=== PATIENT | male | born 1950 | race Caucasian/White ===

== ENCOUNTER 2022-11-09 21:45 | Inpatient (IN) | payer OTHER ==
[~2022-11-09] VITALS: Ht 182.9 cm; Wt 113.0 kg
[2022-11-09 21:45] VITALS: BP 155/56
[2022-11-09 22:00] VITALS: BP 155/56
[2022-11-09] MEDS ORDERED: ACETAMINOPHEN 325 MG TAB PO PRN (22:45)
[2022-11-09] MEDS ORDERED: ONDANSETRON HCL 4 MG/2 ML VIAL IV PRN (22:45)
[2022-11-09] MEDS ORDERED: MORPHINE SULFATE INJ 2 MG/ml SYRG IV PRN (22:45)
[2022-11-09] MEDS ORDERED: ALBUTEROL SULF 2.5 MG/0.5ML(0.5%) NEB SOLN NEB PRN (22:45)
[2022-11-09] MEDS ORDERED: hydrALAZINE HCL 10 MG TAB PO PRN (22:45)
[2022-11-09 23:13] VITALS: BP 155/56
[2022-11-10] VITALS (7 sets, daily range): BP systolic 107–159; BP diastolic 55–88
[2022-11-10 00:10] LABS: INR 3.28 (0.9-1.15)
[2022-11-10] MEDS: ACETAMINOPHEN 650 MG RECT SUPP PR PRN ×2 (00:10→12:34)
[2022-11-10] MEDS ORDERED: WARF-66 PO (02:47)
[2022-11-10] MEDS ORDERED: ALEN70TA74 PO (02:47)
[2022-11-10] MEDS ORDERED: ANAS1TAB7 PO (02:47)
[2022-11-10] MEDS ORDERED: TAMS0.4C36 PO (02:47)
[2022-11-10 06:38] LABS: Anion Gap 3 (5-15); BUN/Creatinine Ratio 11.1 (10.0-20.0); Blood Urea Nitrogen 17 mg/dL (7-18); Calcium 8.4 mg/dL (8.5-10.1); Carbon Dioxide 28 mmol/L (21-32); Chloride 113 mmol/L (98-107); GFR African American 58 mL/min; GFR Non-African American 48 mL/min; Glucose 154 mg/dL (74-106); Potassium 4.1 mmol/L (3.5-5.1); Sodium 144 mmol/L (136-145)
[2022-11-10 07:34] LABS: Basophils # (auto) 0 10 ^3/uL (0-0.2); Basophils % (auto) 0.1 % (0.0-2.0); Eosinophils # (auto) 0 10 ^3/uL (0-0.8); Hematocrit 39.5 % (41.0-53.0); Hemoglobin 13.3 g/dL (13.5-17.5); Lymphocytes # (auto) 0.6 10 ^3/uL (0.4-5.4); Lymphocytes % (auto) 5.6 % (10.0-50.0); Mean Corpuscular Hemoglobin 32.8 pg (28.0-32.0); Mean Corpuscular Hgb Conc. 33.7 g/dL (32.0-36.0); Mean Corpuscular Volume 97.2 fL (80.0-100.0); Monocytes # (auto) 1.1 10 ^3/uL (0-1.3); Monocytes % (auto) 11.1 % (0.0-12.0); Neutrophils # (auto) 8.3 10 ^3/uL (1.6-8.6); Neutrophils % (auto) 83.2 % (37.0-80.0); Red Blood Cells 4.07 10^6/uL (4.5-5.90); Red Cell Distribution Width 13.6 % (11.8-14.3)
[2022-11-10] MEDS: cefTRIAXone 1GM/50ML D5W 50 ML IV SCH (08:35)
[2022-11-10 11:01] LABS: INR 2.96 (0.9-1.15); Partial Thromboplastin Time 42.4 sec (24.6-33.4)
[2022-11-10] MEDS: HYDROcodone-ACET 5/325MG TAB PO PRN (11:23)
[2022-11-10] MEDS ORDERED: SODIUM CHLORIDE 0.9% 1,000 ML IV ONE (17:15)
[2022-11-10] MEDS: PIPERACILLIN-TAZOB 3.375GM 100 ML IV SCH (18:27)
[2022-11-10] MEDS: SODIUM CHLORIDE 0.9% 1,000 ML IV SCH (18:32)
[2022-11-10] MEDS ORDERED: WARFARIN SODIUM 2.5 MG TAB PO ONE (19:00)
[2022-11-11] MEDS: PIPERACILLIN-TAZOB 3.375GM 100 ML IV SCH ×3 (02:29→17:33)
[2022-11-11] MEDS: SODIUM CHLORIDE 0.9% 1,000 ML IV SCH ×3 (03:15→23:11)
[2022-11-11 05:00] VITALS: BP 117/80
[2022-11-11 06:28] LABS: Basophils # (auto) 0 10 ^3/uL (0-0.2); Basophils % (auto) 0.1 % (0.0-2.0); Eosinophils # (auto) 0 10 ^3/uL (0-0.8); Eosinophils % (auto) 0.1 % (0.0-7.0); Hematocrit 35.5 % (41.0-53.0); Hemoglobin 11.9 g/dL (13.5-17.5); Lymphocytes # (auto) 0.7 10 ^3/uL (0.4-5.4); Lymphocytes % (auto) 9.9 % (10.0-50.0); Mean Corpuscular Hemoglobin 32.8 pg (28.0-32.0); Mean Corpuscular Hgb Conc. 33.6 g/dL (32.0-36.0); Mean Corpuscular Volume 97.7 fL (80.0-100.0); Monocytes # (auto) 0.6 10 ^3/uL (0-1.3); Monocytes % (auto) 9.1 % (0.0-12.0); Neutrophils # (auto) 5.5 10 ^3/uL (1.6-8.6); Neutrophils % (auto) 80.8 % (37.0-80.0); Nucleated Red Blood Cells % 0.1 %; Red Blood Cells 3.63 10^6/uL (4.5-5.90); Red Cell Distribution Width 13.6 % (11.8-14.3); White Blood Cell 6.8 10^3/uL (4.4-10.8)
[2022-11-11 06:35] LABS: INR 1.8 (0.9-1.15); Partial Thromboplastin Time 37.6 sec (24.6-33.4)
[2022-11-11 06:41] LABS: BUN/Creatinine Ratio 13.7 (10.0-20.0); Calcium 8.2 mg/dL (8.5-10.1); Potassium 3.9 mmol/L (3.5-5.1)
[2022-11-11] MEDS: cefTRIAXone 1GM/50ML D5W 50 ML IV SCH (08:46)
[2022-11-11 09:00] VITALS: BP 155/87
[2022-11-11 13:00] VITALS: BP 121/80
[2022-11-11] MEDS ORDERED: ARTIFICIAL TEARS 15ml EACHEYE PRN (16:15)
[2022-11-11 16:34] VITALS: BP 155/84
[2022-11-11] MEDS ORDERED: WARFARIN SODIUM 2.5 MG TAB PO ONE (17:00)
[2022-11-11 22:00] VITALS: BP 147/78
[2022-11-12] MEDS: PIPERACILLIN-TAZOB 3.375GM 100 ML IV SCH ×3 (02:35→18:30)
[2022-11-12 04:58] LABS: Basophils # (auto) 0 10 ^3/uL (0-0.2); Basophils % (auto) 0.5 % (0.0-2.0); Eosinophils # (auto) 0.1 10 ^3/uL (0-0.8); Eosinophils % (auto) 1.3 % (0.0-7.0); Hematocrit 32.9 % (41.0-53.0); Hemoglobin 11.2 g/dL (13.5-17.5); Lymphocytes # (auto) 1.3 10 ^3/uL (0.4-5.4); Lymphocytes % (auto) 19.9 % (10.0-50.0); Mean Corpuscular Hemoglobin 32.7 pg (28.0-32.0); Mean Corpuscular Hgb Conc. 33.9 g/dL (32.0-36.0); Mean Corpuscular Volume 96.5 fL (80.0-100.0); Monocytes # (auto) 0.8 10 ^3/uL (0-1.3); Neutrophils # (auto) 4.2 10 ^3/uL (1.6-8.6); Neutrophils % (auto) 66.3 % (37.0-80.0); Nucleated Red Blood Cells % 0.1 %; Red Blood Cells 3.41 10^6/uL (4.5-5.90); Red Cell Distribution Width 13.2 % (11.8-14.3); White Blood Cell 6.4 10^3/uL (4.4-10.8)
[2022-11-12 05:00] VITALS: BP 155/83
[2022-11-12 05:05] LABS: Calcium 7.5 mg/dL (8.5-10.1)
[2022-11-12 05:08] LABS: BUN/Creatinine Ratio 13.5 (10.0-20.0)
[2022-11-12 05:10] LABS: INR 1.36 (0.9-1.15)
[2022-11-12 05:55] VITALS: BP 132/72
[2022-11-12 09:00] VITALS: BP 141/82
[2022-11-12] MEDS: SODIUM CHLORIDE 0.9% 1,000 ML IV SCH (09:15)
[2022-11-12] MEDS: cefTRIAXone 1GM/50ML D5W 50 ML IV SCH (09:48)
[2022-11-12 13:00] VITALS: BP_SYST 167; BP_SYST 170; BP_DIAS 96
[2022-11-12 17:14] VITALS: BP 152/87
[2022-11-12] MEDS: HYDROcodone-ACET 5/325MG TAB PO PRN (18:33)
[2022-11-12 22:00] VITALS: BP 132/79
[2022-11-13 05:00] VITALS: BP 134/82
[2022-11-13] MEDS ORDERED: LEVO500T91 PO (05:51)
[2022-11-13] MEDS ORDERED: WARF-66 PO (05:51)
[2022-11-13 09:00] VITALS: BP 142/83
[2022-11-13 09:34] LABS: Basophils # (auto) 0 10 ^3/uL (0-0.2); Basophils % (auto) 0.3 % (0.0-2.0); Eosinophils # (auto) 0.1 10 ^3/uL (0-0.8); Eosinophils % (auto) 1.8 % (0.0-7.0); Hematocrit 31.6 % (41.0-53.0); Hemoglobin 10.6 g/dL (13.5-17.5); Lymphocytes % (auto) 19.9 % (10.0-50.0); Mean Corpuscular Hemoglobin 32.3 pg (28.0-32.0); Mean Corpuscular Hgb Conc. 33.5 g/dL (32.0-36.0); Mean Corpuscular Volume 96.5 fL (80.0-100.0); Monocytes # (auto) 0.4 10 ^3/uL (0-1.3); Monocytes % (auto) 7.6 % (0.0-12.0); Neutrophils # (auto) 3.7 10 ^3/uL (1.6-8.6); Neutrophils % (auto) 70.4 % (37.0-80.0); Nucleated Red Blood Cells % 0.1 %; Red Blood Cells 3.28 10^6/uL (4.5-5.90); Red Cell Distribution Width 13.2 % (11.8-14.3); White Blood Cell 5.2 10^3/uL (4.4-10.8)
[2022-11-13 09:48] LABS: INR 1.26 (0.9-1.15); Partial Thromboplastin Time 31.1 sec (24.6-33.4)
[2022-11-13] MEDS ORDERED: levoFLOXacin 500 MG TAB PO SCH (10:00)
[2022-11-13 13:00] VITALS: BP 150/66
[2022-11-13] MEDS: HYDROcodone-ACET 5/325MG TAB PO PRN (14:00)
[2022-11-13 16:58] VITALS: BP 150/66
[2022-11-13 16:59] VITALS: BP 148/78
[2022-11-13] MEDS ORDERED: WARFARIN SODIUM 5 MG TAB PO SCH (17:00)
[2022-11-13] MEDS ORDERED: WARFARIN SODIUM 2.5 MG TAB PO ONE (17:00)
== END 2022-11-13 18:25 | disposition home health service (06) | DRG 871 ==
LOC: TELE-WESTW 21:45
PROVIDERS: ADMIT Internal Medicine; ATTEND Internal Medicine
DX: A41.89 Other specified sepsis (principal); G93.41 Metabolic encephalopathy; N13.6 Pyonephrosis; I13.0 Hypertensive heart and chronic kidney disease with heart failure and stage 1 through stage 4 chronic kidney disease, or unspecified chronic kidney disease; B96.89 Other specified bacterial agents as the cause of diseases classified elsewhere; R31.9 Hematuria, unspecified; R09.02 Hypoxemia; F03.90 Unspecified dementia, unspecified severity, without behavioral disturbance, psychotic disturbance, mood disturbance, and anxiety; N40.0 Benign prostatic hyperplasia without lower urinary tract symptoms; R41.0 Disorientation, unspecified; M81.0 Age-related osteoporosis without current pathological fracture; R29.6 Repeated falls; N32.0 Bladder-neck obstruction; N18.30 Chronic kidney disease, stage 3 unspecified; I50.9 Heart failure, unspecified; Z86.711 Personal history of pulmonary embolism; Z86.718 Personal history of other venous thrombosis and embolism; Z79.01 Long term (current) use of anticoagulants; Z79.810 Long term (current) use of selective estrogen receptor modulators (SERMs); Z79.899 Other long term (current) drug therapy; Z85.3 Personal history of malignant neoplasm of breast; Z80.0 Family history of malignant neoplasm of digestive organs; Z90.12 Acquired absence of left breast and nipple; Z87.891 Personal history of nicotine dependence; Z92.21 Personal history of antineoplastic chemotherapy
CPT/HCPCS: 36415; 70450; 76775; 80048; 83605; 85025; 85610; 85730; 87040; 97116; 97163; 97530; G0378; J0696; J2543

== ENCOUNTER 2023-01-30 07:27 | Day surgery (SDC) | payer BC, OTHER ==
[~2023-01-30] VITALS: Ht 185.4 cm; Wt 108.4 kg
[2023-01-30] VITALS (8 sets, daily range): BP systolic 87–142; BP diastolic 52–90; PULSE 68–82; RESP 12–16; O2SAT 94–100
[~2023-01-30 07:27] MED LIST: ALEN70TA74 PO; AML5T PO; TAMS0.4C36 PO; WARF-66 PO
[2023-01-30] MEDS ORDERED: HEPARIN SODIUM (PORCINE) 5000 UNITS/ML 1ML VIAL ONE (09:08)
[2023-01-30] MEDS ORDERED: fentaNYL CITRATE 100 MCG/2 ML VL ONE (09:08)
[2023-01-30] MEDS ORDERED: ANGIOMAX 250 MG VIAL IV ONE (09:08)
[2023-01-30] MEDS ORDERED: VERAPAMIL 2.5MG/ML INJ 2ML VIAL IV ONE (09:08)
[2023-01-30] MEDS ORDERED: SODIUM CHL 0.9% 0 ML ONE (09:09)
[2023-01-30] MEDS ORDERED: LIDOCAINE 2%HCL (LOCAL ANESTH.) INJ 20ML MDV ONE (09:09)
[2023-01-30] MEDS ORDERED: MIDAZOLAM HCL 2MG/2ML 2ml VIAL (1mg/ml) ONE (09:09)
[2023-01-30] MEDS ORDERED: IODIXANOL 320MG/ML 100ML BTL IV ONE (09:09)
== END 2023-01-30 12:12 | disposition home or self-care (01) ==
LOC: CATH 07:27
PROVIDERS: ATTEND Internal Medicine
DX: R94.39 Abnormal result of other cardiovascular function study (principal); I25.118 Atherosclerotic heart disease of native coronary artery with other forms of angina pectoris; I77.1 Stricture of artery
CPT/HCPCS: 76937; 93458; C1725; C1769; C1894; J1644; J2250; J3010; Q9967; 99152

== ENCOUNTER → 2023-04-27 | Day surgery (SDC) | payer BC, OTHER ==
[~2023-04-27] VITALS: Ht 185.4 cm; Wt 108.4 kg
[~2023-04-27] MED LIST changes: +CIPROFLOXACIN 400MG/200ML 200 ML IV ONE; +HYDROmorphone HCL 2 MG/ML VL/or syr IV PRN; +MEPERIDINE HCL (25 MG/ML) 1ML VIAL IV PRN; +ONDANSETRON HCL 4 MG/2 ML VIAL IV PRN; +ONDANSETRON HCL 4 MG/2 ML VIAL ONE; +PROPOFOL 10 MG/ML 20 ML IV ONE; +ePHEDrine SULFATE 50 MG/ML AMP ONE; +fentaNYL CITRATE 100 MCG/2 ML VL ONE
[2023-04-27 08:51] LABS: INR 1.25 (0.9-1.15); Partial Thromboplastin Time 29.1 SEC (24.5-34.5); Prothrombin Time 12.9 sec (9.3-11.8)
[2023-04-27 11:36] VITALS: PULSE 71; RESP 12; TEMP 97.1; O2SAT 92
[2023-04-27 12:45] VITALS: BP 147/85; PULSE 74; RESP 16; O2SAT 96
== END | disposition home or self-care (01) ==
LOC: SUR 07:46
PROVIDERS: ATTEND Urology
DX: N40.1 Benign prostatic hyperplasia with lower urinary tract symptoms (principal); I11.0 Hypertensive heart disease with heart failure; I50.9 Heart failure, unspecified; G47.30 Sleep apnea, unspecified; Z79.899 Other long term (current) drug therapy; Z98.890 Other specified postprocedural states
CPT/HCPCS: 36415; 52601; 85610; 85730; J0744; J2405; J2704; J3010

== ENCOUNTER 2023-05-26 14:36 | Inpatient (IN) | payer BC, OTHER ==
[~2023-05-26] VITALS: Ht 188 cm; Wt 110.9 kg
[~2023-05-26 14:36] MED LIST changes: -CIPROFLOXACIN 400MG/200ML 200 ML IV ONE; -HYDROmorphone HCL 2 MG/ML VL/or syr IV PRN; -MEPERIDINE HCL (25 MG/ML) 1ML VIAL IV PRN; -ONDANSETRON HCL 4 MG/2 ML VIAL IV PRN; -ONDANSETRON HCL 4 MG/2 ML VIAL ONE; -PROPOFOL 10 MG/ML 20 ML IV ONE; -ePHEDrine SULFATE 50 MG/ML AMP ONE; -fentaNYL CITRATE 100 MCG/2 ML VL ONE
[2023-05-26] MEDS ORDERED: ACET-6 PO (16:11)
[2023-05-26] MEDS ORDERED: ANAS1TAB7 PO (16:11)
[2023-05-26] MEDS ORDERED: DOCUSATE SOD 100 MG CAP PO PRN (16:45)
[2023-05-26] MEDS ORDERED: ONDANSETRON HCL 4 MG/2 ML VIAL IV PRN (16:45)
[2023-05-26 17:00] VITALS: PULSE 118; RESP 18; O2SAT 95
[2023-05-26] MEDS ORDERED: MORPHINE SULFATE INJ 2 MG/ml SYRG IV PRN (17:00)
[2023-05-26] MEDS ORDERED: NITROGLYCERIN 0.4 MG SL TAB SL PRN (17:00)
[2023-05-26 17:03] VITALS: BP 164/76; PULSE 125; RESP 16; TEMP 98.3; O2SAT 95
[2023-05-26] MEDS ORDERED: LIDOCAINE 2% JELLY 11ml (GLYDO) UR ONE (17:15)
[2023-05-26] MEDS ORDERED: hydrALAZINE HCL 20 MG/ML VL ONE (17:23)
[2023-05-26] MEDS ORDERED: MORPHINE SULFATE INJ 2 MG/ml SYRG ONE (17:23)
[2023-05-26] MEDS ORDERED: LIDOCAINE 2% JELLY 11ml (GLYDO) ONE (17:33)
[2023-05-26] MEDS: MORPHINE SULFATE INJ 2 MG/ml SYRG IV PRN (17:56)
[2023-05-26] MEDS: hydrALAZINE HCL 20 MG/ML VL IV PRN (17:57)
[2023-05-26] MEDS ORDERED: hydrALAZINE HCL 20 MG/ML VL IV SCH (18:00)
[2023-05-26] MEDS ORDERED: HYDROcodone-ACET 5/325MG TAB ONE (18:46)
[2023-05-26] MEDS: HYDROcodone-ACET 5/325MG TAB PO PRN (18:48)
[2023-05-26] MEDS ORDERED: amLODIPine BESYLATE 5 MG TAB PO ONE (19:15)
[2023-05-26] MEDS ORDERED: amLODIPine BESYLATE 5 MG TAB ONE (19:41)
[2023-05-26 20:00] VITALS: BP 122/78; PULSE 141; RESP 17; TEMP 98.5; O2SAT 94
[2023-05-26 20:21] LABS: Urine Bacteria NONE SEEN /hpf (None Seen); Urine Blood 1+ /uL (Negative); Urine Clarity Clear (Clear); Urine Color Colorless (Yellow); Urine Protein, UAD Negative (Negative); Urine Specific Gravity 1.013 (1.001-1.035); Urine Urobilinogen Normal (Negative); Urine WBC 4 /hpf (0 - 3); Urine pH 5.5 (5.0-8.0)
[2023-05-26] MEDS: SODIUM CHLORIDE 0.9% 1,000 ML IV SCH (21:00)
[2023-05-26] MEDS ORDERED: TAMSULOSIN HYDROCHLORIDE 0.4 MG CAP PO ONE (21:23)
[2023-05-26] MEDS ORDERED: ENOXAPARIN SOD 120 MG/0.8 ML SYRINGE SC ONE (21:24)
[2023-05-26] MEDS: ENOXAPARIN SOD 120 MG/0.8 ML SYRINGE SC SCH (21:39)
[2023-05-26] MEDS: TAMSULOSIN HYDROCHLORIDE 0.4 MG CAP PO SCH (21:39)
[2023-05-26 22:00] VITALS: BP 122/78; PULSE 140; RESP 17; TEMP 98.3; O2SAT 99
[2023-05-27] VITALS (7 sets, daily range): BP systolic 113–161; BP diastolic 65–84; PULSE 97–121; RESP 16–20; TEMP 97.7–98.7; O2SAT 92–100
[2023-05-27 05:57] LABS: Basophils # (auto) 0 10 ^3/uL (0-0.2); Basophils % (auto) 0.3 % (0.0-2.0); Eosinophils # (auto) 0.2 10 ^3/uL (0-0.8); Eosinophils % (auto) 2.1 % (0.0-7.0); Hematocrit 37.4 % (41.0-53.0); Hemoglobin 12.6 g/dL (13.5-17.5); Lymphocytes # (auto) 1.2 10 ^3/uL (0.4-5.4); Lymphocytes % (auto) 15.9 % (10.0-50.0); Mean Corpuscular Hemoglobin 31.8 pg (28.0-32.0); Mean Corpuscular Hgb Conc. 33.6 g/dL (32.0-36.0); Mean Corpuscular Volume 94.8 fL (80.0-100.0); Monocytes # (auto) 0.6 10 ^3/uL (0-1.3); Monocytes % (auto) 8.8 % (0.0-12.0); Neutrophils # (auto) 5.3 10 ^3/uL (1.6-8.6); Neutrophils % (auto) 72.9 % (37.0-80.0); Nucleated Red Blood Cells % 0.1 %; Red Blood Cells 3.94 10^6/uL (4.5-5.90); Red Cell Distribution Width 13.3 % (11.8-14.3); White Blood Cell 7.3 10^3/uL (4.4-10.8)
[2023-05-27 06:13] LABS: Alanine Aminotransferase 17 U/L (7-40); Albumin 3.6 g/dL (3.2-4.8); Alkaline Phosphatase 59 U/L (46-116); Anion Gap 7 (5-15); Aspartate Aminotransferase 25 U/L (13-40); BUN/Creatinine Ratio 12.7 (10.0-20.0); Bilirubin, Total 1.1 mg/dL (0.2-1.0); Blood Urea Nitrogen 17 mg/dL (9-23); Calcium 8.5 mg/dL (8.7-10.4); Carbon Dioxide 26 mmol/L (20-30); Chloride 111 mmol/L (98-107); Glucose 139 mg/dL (74-106); Potassium 3.8 mmol/L (3.5-5.1); Sodium 144 mmol/L (136-145); Total Protein 6.3 g/dL (5.7-8.2)
[2023-05-27] MEDS: SODIUM CHLORIDE 0.9% 1,000 ML IV SCH ×3 (06:19→18:01)
[2023-05-27 06:26] LABS: INR 1.94 (0.9-1.15); Partial Thromboplastin Time 40.7 SEC (24.5-34.5); Prothrombin Time 19.5 sec (9.3-11.8)
[2023-05-27] MEDS: ENOXAPARIN SOD 120 MG/0.8 ML SYRINGE SC SCH ×3 (08:10→21:13)
[2023-05-27] MEDS ORDERED: amLODIPine BESYLATE 5 MG TAB ONE (09:51)
[2023-05-27] MEDS ORDERED: TAMSULOSIN HYDROCHLORIDE 0.4 MG CAP PO ONE ×2 (09:51→21:10)
[2023-05-27] MEDS: TAMSULOSIN HYDROCHLORIDE 0.4 MG CAP PO SCH ×2 (09:58→21:13)
[2023-05-27] MEDS: amLODIPine BESYLATE 5 MG TAB PO SCH (10:00)
[2023-05-27] MEDS ORDERED: ENOXAPARIN SOD 120 MG/0.8 ML SYRINGE SC ONE ×2 (12:28→21:10)
[2023-05-27] MEDS ORDERED: ACETAMINOPHEN 325 MG TAB PO PRN (15:15)
[2023-05-27] MEDS ORDERED: ACETAMINOPHEN 325 MG TAB PO ONE (15:48)
[2023-05-27] MEDS ORDERED: LACTULOSE 20Gm/30ML SOLN ONE (15:48)
[2023-05-27] MEDS: LACTULOSE 20Gm/30ML SOLN PO PRN (15:52)
[2023-05-27] MEDS ORDERED: hydrALAZINE HCL 20 MG/ML VL ONE (21:28)
[2023-05-27] MEDS: hydrALAZINE HCL 20 MG/ML VL IV PRN (21:30)
[2023-05-28 05:00] VITALS: BP 152/75; PULSE 102; RESP 20; TEMP 97.9; O2SAT 93
[2023-05-28] MEDS: MORPHINE SULFATE INJ 2 MG/ml SYRG IV PRN (05:12)
[2023-05-28] MEDS: SODIUM CHLORIDE 0.9% 1,000 ML IV SCH ×3 (05:13→18:45)
[2023-05-28] MEDS ORDERED: BUPIVACAINE HCL 50 ML ONE (06:36)
[2023-05-28] MEDS ORDERED: MORPHINE SULF PF 5 MG/10 ML VIAL ONE (06:38)
[2023-05-28] MEDS ORDERED: TRANEXAMIC ACID 20 ML ONE (06:40)
[2023-05-28] MEDS ORDERED: VANCOMYCIN HCL 1000 MG VL ONE (06:41)
[2023-05-28] MEDS ORDERED: KETOROLAC TROMETH 30 MG/ML 1ML VIAL ONE (06:43)
[2023-05-28] MEDS ORDERED: ceFAZolin 1GM/50ML 100 ML IV ONE (06:49)
[2023-05-28] MEDS ORDERED: fentaNYL CITRATE 100 MCG/2 ML VL ONE (06:58)
[2023-05-28] MEDS ORDERED: PROPOFOL 10 MG/ML 20 ML IV ONE (06:58)
[2023-05-28] MEDS ORDERED: ePHEDrine SULFATE 50 MG/ML AMP ONE (07:29)
[2023-05-28] MEDS ORDERED: DexAMETHasone SOD PHOS 10MG/1ML VIAL INJ ONE (07:37)
[2023-05-28] MEDS ORDERED: ONDANSETRON HCL 4 MG/2 ML VIAL ONE (07:37)
[2023-05-28] MEDS ORDERED: MEPERIDINE HCL (25 MG/ML) 1ML VIAL ONE (07:44)
[2023-05-28] MEDS ORDERED: PHENYLEPHRINE HCL 10 MG/ML VL ONE (07:48)
[2023-05-28 08:37] VITALS: RESP 19; O2SAT 93
[2023-05-28 10:00] VITALS: PULSE 118
[2023-05-28] MEDS: ENOXAPARIN SOD 120 MG/0.8 ML SYRINGE SC SCH (10:00)
[2023-05-28] MEDS: TAMSULOSIN HYDROCHLORIDE 0.4 MG CAP PO SCH ×2 (10:37→21:15)
[2023-05-28] MEDS: amLODIPine BESYLATE 5 MG TAB PO SCH (10:37)
[2023-05-28 10:53] LABS: INR 1.42 (0.9-1.15); Prothrombin Time 14.6 sec (9.3-11.8)
[2023-05-28 13:00] VITALS: BP 92/59; PULSE 112; RESP 18; TEMP 97.1; O2SAT 93
[2023-05-28] MEDS: ceFAZolin 2 GM/D5W100ml 100 ML IV SCH ×2 (14:46→21:15)
[2023-05-28] MEDS ORDERED: WARFARIN SODIUM 5 MG TAB PO ONE (17:00)
[2023-05-28 20:00] VITALS: PULSE 90; PULSE 96; RESP 20
[2023-05-28 22:00] VITALS: BP 105/61; PULSE 98; RESP 20; TEMP 97.8; O2SAT 92
[2023-05-29] VITALS (7 sets, daily range): BP systolic 102–136; BP diastolic 56–72; PULSE 78–91; RESP 18–20; TEMP 97.1–98.7; O2SAT 94–98
[2023-05-29] MEDS: HYDROcodone-ACET 5/325MG TAB PO PRN ×2 (02:18→15:22)
[2023-05-29] MEDS: SODIUM CHLORIDE 0.9% 1,000 ML IV SCH ×4 (04:54→20:40)
[2023-05-29] MEDS: ceFAZolin 2 GM/D5W100ml 100 ML IV SCH ×3 (06:05→23:31)
[2023-05-29 06:53] LABS: INR 1.42 (0.9-1.15); Prothrombin Time 14.6 sec (9.3-11.8)
[2023-05-29] MEDS: TAMSULOSIN HYDROCHLORIDE 0.4 MG CAP PO SCH ×2 (09:44→23:29)
[2023-05-29] MEDS: amLODIPine BESYLATE 5 MG TAB PO SCH (10:00)
[2023-05-29] MEDS ORDERED: WARFARIN SODIUM 5 MG TAB PO ONE (17:00)
[2023-05-30 05:00] VITALS: BP 137/67; PULSE 75; RESP 20; TEMP 97.2; O2SAT 97
[2023-05-30] MEDS: LACTULOSE 20Gm/30ML SOLN PO PRN (05:35)
[2023-05-30] MEDS: SODIUM CHLORIDE 0.9% 1,000 ML IV SCH ×2 (05:36→18:44)
[2023-05-30] MEDS: ceFAZolin 2 GM/D5W100ml 100 ML IV SCH ×3 (05:37→22:41)
[2023-05-30 06:33] LABS: INR 1.49 (0.9-1.15); Prothrombin Time 15.2 sec (9.3-11.8)
[2023-05-30] MEDS: TAMSULOSIN HYDROCHLORIDE 0.4 MG CAP PO SCH ×2 (08:47→22:41)
[2023-05-30] MEDS: amLODIPine BESYLATE 5 MG TAB PO SCH (08:47)
[2023-05-30 09:00] VITALS: BP 135/81; PULSE 81; RESP 18; TEMP 97.9; O2SAT 96
[2023-05-30 13:00] VITALS: BP 143/71; PULSE 80; RESP 18; TEMP 98.8; O2SAT 95
[2023-05-30 17:00] VITALS: BP 134/62; PULSE 93; RESP 19; TEMP 98.8; O2SAT 93
[2023-05-30] MEDS ORDERED: WARFARIN SODIUM 5 MG TAB PO ONE (17:00)
[2023-05-30 20:00] VITALS: PULSE 103; PULSE 93; PULSE 98; RESP 18; O2SAT 92
[2023-05-30 22:00] VITALS: BP 160/59; PULSE 98; RESP 18; TEMP 97.5; O2SAT 95
[2023-05-31] VITALS (10 sets, daily range): BP systolic 115–175; BP diastolic 59–83; PULSE 78–111; RESP 16–18; TEMP 97.5–98.7; O2SAT 92–100
[2023-05-31] MEDS: hydrALAZINE HCL 20 MG/ML VL IV PRN (01:26)
[2023-05-31] MEDS: SODIUM CHLORIDE 0.9% 1,000 ML IV SCH ×3 (05:26→11:49)
[2023-05-31] MEDS: ceFAZolin 2 GM/D5W100ml 100 ML IV SCH ×3 (05:49→21:18)
[2023-05-31 06:47] LABS: Anion Gap 7 (5-15); Carbon Dioxide 28 mmol/L (20-30); Chloride 108 mmol/L (98-107); Potassium 4.1 mmol/L (3.5-5.1); Sodium 143 mmol/L (136-145)
[2023-05-31 06:48] LABS: Calcium 8.6 mg/dL (8.5-10.1)
[2023-05-31 06:53] LABS: BUN/Creatinine Ratio 14.5 (10.0-20.0); Basophils # (auto) 0 10 ^3/uL (0-0.2); Basophils % (auto) 0.3 % (0.0-2.0); Blood Urea Nitrogen 17 mg/dL (9-23); Eosinophils # (auto) 0.2 10 ^3/uL (0-0.8); Eosinophils % (auto) 2.8 % (0.0-7.0); Glucose 142 mg/dL (74-106); Hematocrit 26.2 % (41.0-53.0); Hemoglobin 9.1 g/dL (13.5-17.5); Lymphocytes # (auto) 1.4 10 ^3/uL (0.4-5.4); Lymphocytes % (auto) 19.9 % (10.0-50.0); Mean Corpuscular Hemoglobin 32.6 pg (28.0-32.0); Mean Corpuscular Hgb Conc. 34.6 g/dL (32.0-36.0); Mean Corpuscular Volume 94.3 fL (80.0-100.0); Monocytes # (auto) 0.7 10 ^3/uL (0-1.3); Neutrophils # (auto) 4.8 10 ^3/uL (1.6-8.6); Nucleated Red Blood Cells % 0.2 %; Red Blood Cells 2.78 10^6/uL (4.5-5.90); Red Cell Distribution Width 12.9 % (11.8-14.3); White Blood Cell 7.2 10^3/uL (4.4-10.8)
[2023-05-31 06:59] LABS: INR 1.26 (0.9-1.15); Partial Thromboplastin Time 28.5 SEC (24.5-34.5)
[2023-05-31] MEDS: amLODIPine BESYLATE 5 MG TAB PO SCH (09:52)
[2023-05-31] MEDS: TAMSULOSIN HYDROCHLORIDE 0.4 MG CAP PO SCH ×2 (09:52→21:18)
[2023-05-31] MEDS: HYDROcodone-ACET 5/325MG TAB PO PRN (13:52)
[2023-05-31] MEDS ORDERED: WARFARIN SODIUM 2 MG TAB PO ONE (17:00)
[2023-06-01] VITALS (7 sets, daily range): BP systolic 128–146; BP diastolic 69–75; PULSE 85–96; RESP 18–19; TEMP 98–99.3; O2SAT 91–97
[2023-06-01] MEDS: SODIUM CHLORIDE 0.9% 1,000 ML IV SCH ×2 (02:56→12:51)
[2023-06-01] MEDS: ceFAZolin 2 GM/D5W100ml 100 ML IV SCH ×3 (06:15→21:45)
[2023-06-01 07:48] LABS: INR 1.19 (0.9-1.15); Partial Thromboplastin Time 26.4 SEC (24.5-34.5); Prothrombin Time 12.4 sec (9.3-11.8)
[2023-06-01] MEDS: amLODIPine BESYLATE 5 MG TAB PO SCH (10:00)
[2023-06-01] MEDS: TAMSULOSIN HYDROCHLORIDE 0.4 MG CAP PO SCH (12:22)
[2023-06-01] MEDS: HYDROcodone-ACET 5/325MG TAB PO PRN (12:22)
[2023-06-01] MEDS ORDERED: WARFARIN SODIUM 10 MG TAB PO ONE (17:00)
[2023-06-02] VITALS (7 sets, daily range): BP systolic 135–150; BP diastolic 69–96; PULSE 77–93; RESP 18–20; TEMP 97.5–98.4; O2SAT 92–100
[2023-06-02] MEDS: ceFAZolin 2 GM/D5W100ml 100 ML IV SCH ×2 (06:00→14:30)
[2023-06-02 07:52] LABS: INR 1.19 (0.9-1.15); Prothrombin Time 12.4 sec (9.3-11.8)
[2023-06-02] MEDS: amLODIPine BESYLATE 5 MG TAB PO SCH (10:00)
[2023-06-02] MEDS: HYDROcodone-ACET 5/325MG TAB PO PRN (10:29)
[2023-06-02] MEDS: LACTULOSE 20Gm/30ML SOLN PO PRN (10:29)
[2023-06-02] MEDS ORDERED: WARFARIN SODIUM 2.5 MG TAB PO ONE (17:00)
[2023-06-02] MEDS ORDERED: TAMSULOSIN HYDROCHLORIDE 0.4 MG CAP PO SCH (18:00)
== END 2023-06-02 18:11 | DRG 522 ==
LOC: TELE-WESTW 16:50 → UNDOADMIN 16:53 → UNDODISIN 06-02 17:43
PROVIDERS: ADMIT Internal Medicine; ATTEND Internal Medicine
PROC: 0SRR0JZ Replacement of Right Hip Joint, Femoral Surface with Synthetic Substitute, Open Approach (ICD-10-PCS; principal; 2023-05-28 07:15)
DX: S72.001A Fracture of unspecified part of neck of right femur, initial encounter for closed fracture (principal); I50.9 Heart failure, unspecified; I11.0 Hypertensive heart disease with heart failure; N40.0 Benign prostatic hyperplasia without lower urinary tract symptoms; F03.90 Unspecified dementia, unspecified severity, without behavioral disturbance, psychotic disturbance, mood disturbance, and anxiety; W18.39XA Other fall on same level, initial encounter; H91.90 Unspecified hearing loss, unspecified ear; Z79.01 Long term (current) use of anticoagulants; Z86.711 Personal history of pulmonary embolism; Z82.49 Family history of ischemic heart disease and other diseases of the circulatory system; Z83.3 Family history of diabetes mellitus; Z85.3 Personal history of malignant neoplasm of breast; Z85.89 Personal history of malignant neoplasm of other organs and systems; Z86.718 Personal history of other venous thrombosis and embolism; Y93.89 Activity, other specified; Y92.89 Other specified places as the place of occurrence of the external cause; Y99.8 Other external cause status
CPT/HCPCS: 36415; 70450; 71045; 72170; 80048; 80053; 81001; 85025; 85610; 85730; 86850; 86900; 86901; 87081; 87086; 93005; 93306; 97110; 97116; 97163; A4565; G0378; J1100; J1885; J2405; J2704; J3490

== ENCOUNTER 2023-10-11 17:58 | Inpatient (IN) | payer BC, OTHER ==
[~2023-10-11] VITALS: Ht 182.9 cm; Wt 94.9 kg
[~2023-10-11 17:58] MED LIST changes: +ACET-6 PO; +ANAS1TAB7 PO
[2023-10-11] MEDS ORDERED: VANCOMYCIN PER PHARMACY 0 MG IV SCH (20:45)
[2023-10-11] MEDS ORDERED: ONDANSETRON HCL 4 MG/2 ML VIAL IV PRN (20:45)
[2023-10-11] MEDS ORDERED: MORPHINE SULFATE INJ 2 MG/ml SYRG IV PRN (20:45)
[2023-10-11] MEDS ORDERED: ACETAMINOPHEN 325 MG TAB PO PRN (20:45)
[2023-10-11 21:00] VITALS: BP 136/66; PULSE 115; RESP 20; TEMP 98.8; O2SAT 96
[2023-10-11] MEDS ORDERED: APIX5TAB PO (21:15)
[2023-10-11] MEDS: cefTRIAXone 1GM/50ML D5W 50 ML IV SCH (21:37)
[2023-10-11] MEDS: HYDROcodone-ACET 5/325MG TAB PO PRN (22:49)
[2023-10-11] MEDS: VANCOMYCIN 1GM/200ML 200 ML IV ONE (22:49)
[2023-10-11 23:32] LABS: Basophils # (auto) 0 10 ^3/uL (0-0.2); Basophils % (auto) 0.3 % (0.0-2.0); Eosinophils # (auto) 0.1 10 ^3/uL (0-0.8); Hemoglobin 8.2 g/dL (13.5-17.5); Monocytes # (auto) 0.5 10 ^3/uL (0-1.3); Nucleated Red Blood Cells % 0.1 %
[2023-10-11 23:34] LABS: Eosinophils % (auto) 2.4 % (0.0-7.0); Hematocrit 25.2 % (41.0-53.0); Lymphocytes % (auto) 16.4 % (10.0-50.0); Mean Corpuscular Hemoglobin 27.8 pg (28.0-32.0); Mean Corpuscular Hgb Conc. 32.4 g/dL (32.0-36.0); Mean Corpuscular Volume 85.7 fL (80.0-100.0); Monocytes % (auto) 8.2 % (0.0-12.0); Neutrophils # (auto) 4.4 10 ^3/uL (1.6-8.6); Neutrophils % (auto) 72.7 % (37.0-80.0); Red Blood Cells 2.94 10^6/uL (4.5-5.90); Red Cell Distribution Width 17.9 % (11.8-14.3)
[2023-10-11 23:42] LABS: Chloride 109 mmol/L (98-107); Potassium 4.6 mmol/L (3.5-5.1); Sodium 142 mmol/L (136-145)
[2023-10-11 23:43] LABS: Anion Gap 4 (5-15); Carbon Dioxide 29 mmol/L (20-30)
[2023-10-11 23:44] LABS: Calcium 9.2 mg/dL (8.5-10.1)
[2023-10-11 23:48] LABS: BUN/Creatinine Ratio 15.1 (10.0-20.0); Blood Urea Nitrogen 13 mg/dL (9-23); Glucose 175 mg/dL (74-106)
[2023-10-11 23:56] LABS: INR 1.21 (0.9-1.15); Prothrombin Time 12.6 sec (9.3-11.8)
[2023-10-12 01:00] VITALS: BP 119/46; PULSE 114; RESP 18; TEMP 98.6; O2SAT 99
[2023-10-12 08:00] VITALS: PULSE 104
[2023-10-12 09:00] VITALS: BP 140/58; PULSE 107; RESP 18; TEMP 98.2; O2SAT 98
[2023-10-12] MEDS ORDERED: cefTRIAXone 1GM/50ML D5W 50 ML IV SCH (09:00)
[2023-10-12 09:26] LABS: Basophils # (auto) 0 10 ^3/uL (0-0.2); Basophils % (auto) 0.4 % (0.0-2.0); Eosinophils # (auto) 0.1 10 ^3/uL (0-0.8); Eosinophils % (auto) 2.6 % (0.0-7.0); Hematocrit 27.1 % (41.0-53.0); Hemoglobin 8.7 g/dL (13.5-17.5); Lymphocytes % (auto) 18.4 % (10.0-50.0); Mean Corpuscular Hemoglobin 27.9 pg (28.0-32.0); Mean Corpuscular Hgb Conc. 32.1 g/dL (32.0-36.0); Mean Corpuscular Volume 86.9 fL (80.0-100.0); Monocytes # (auto) 0.6 10 ^3/uL (0-1.3); Monocytes % (auto) 10.1 % (0.0-12.0); Neutrophils # (auto) 3.8 10 ^3/uL (1.6-8.6); Neutrophils % (auto) 68.5 % (37.0-80.0); Red Blood Cells 3.12 10^6/uL (4.5-5.90); Red Cell Distribution Width 17.8 % (11.8-14.3); White Blood Cell 5.5 10^3/uL (4.4-10.8)
[2023-10-12] MEDS: ENOXAPARIN SOD 40 MG/0.4 ML SYRINGE SC SCH (09:32)
[2023-10-12] MEDS: PANTOPRAZOLE 40 MG/10 ML VIAL INJ IV SCH (09:33)
[2023-10-12 09:35] LABS: Anion Gap 4 (5-15); Carbon Dioxide 27 mmol/L (20-30); Chloride 111 mmol/L (98-107); Potassium 4.3 mmol/L (3.5-5.1); Sodium 142 mmol/L (136-145)
[2023-10-12 09:37] LABS: Calcium 9.7 mg/dL (8.5-10.1)
[2023-10-12 09:41] LABS: Blood Urea Nitrogen 11 mg/dL (9-23); Glucose 130 mg/dL (74-106)
[2023-10-12] MEDS: VANCOMYCIN 1GM/200ML 200 ML IV SCH (10:28)
[2023-10-12 10:48] LABS: Hepatitis B Surface Antigen Negative (Negative)
[2023-10-12 11:09] LABS: Hepatitis C Antibody Negative (Negative)
[2023-10-12 11:24] LABS: BUN/Creatinine Ratio 13.3 (10.0-20.0)
[2023-10-12] MEDS: SODIUM CHLORIDE 0.9% 1,000 ML IV SCH (12:37)
[2023-10-12 13:32] VITALS: BP 134/67; PULSE 110; RESP 17; TEMP 97.5; O2SAT 100
[2023-10-12 17:52] VITALS: BP 140/63; PULSE 99; RESP 17; TEMP 97.4; O2SAT 100
[2023-10-12 20:00] VITALS: PULSE 115
[2023-10-13] VITALS (8 sets, daily range): BP systolic 116–148; BP diastolic 55–82; PULSE 102–119; RESP 12–18; TEMP 97.1–99; O2SAT 94–100
[2023-10-13 06:20] LABS: Basophils # (auto) 0 10 ^3/uL (0-0.2); Basophils % (auto) 0.3 % (0.0-2.0); Eosinophils # (auto) 0.1 10 ^3/uL (0-0.8); Eosinophils % (auto) 1.8 % (0.0-7.0); Hematocrit 22.6 % (41.0-53.0); Hemoglobin 7.3 g/dL (13.5-17.5); Lymphocytes # (auto) 1.5 10 ^3/uL (0.4-5.4); Mean Corpuscular Hemoglobin 27.8 pg (28.0-32.0); Mean Corpuscular Hgb Conc. 32.5 g/dL (32.0-36.0); Mean Corpuscular Volume 85.6 fL (80.0-100.0); Monocytes # (auto) 0.6 10 ^3/uL (0-1.3); Monocytes % (auto) 9.6 % (0.0-12.0); Neutrophils # (auto) 3.9 10 ^3/uL (1.6-8.6); Neutrophils % (auto) 64.3 % (37.0-80.0); Nucleated Red Blood Cells % 0.1 %; Red Blood Cells 2.64 10^6/uL (4.5-5.90); Red Cell Distribution Width 17.7 % (11.8-14.3); White Blood Cell 6.1 10^3/uL (4.4-10.8)
[2023-10-13 06:24] LABS: Chloride 113 mmol/L (98-107); Potassium 4.3 mmol/L (3.5-5.1); Sodium 146 mmol/L (136-145)
[2023-10-13 06:25] LABS: Anion Gap 5 (5-15); Calcium 10.1 mg/dL (8.5-10.1); Carbon Dioxide 28 mmol/L (20-30)
[2023-10-13 06:30] LABS: Glucose 116 mg/dL (74-106)
[2023-10-13 06:40] LABS: CRP High Sensitivity 1.54 mg/dL (<1.0)
[2023-10-13 06:46] LABS: Erythrocyte Sedimentation Rate 85 mm/hr (0-20)
[2023-10-13 06:50] LABS: BUN/Creatinine Ratio 17.1 (10.0-20.0); Blood Urea Nitrogen 13 mg/dL (9-23)
[2023-10-13] MEDS: IOHEXOL 300 MG/ML 100ML BOTTLE IJ ONE (14:41)
[2023-10-13] MEDS: LIDOCAINE 2%HCL (LOCAL ANESTH.) INJ 10ml MDV ONE (14:42)
[2023-10-14] VITALS (8 sets, daily range): BP systolic 124–159; BP diastolic 60–87; PULSE 104–113; RESP 16–18; TEMP 97.8–98.9; O2SAT 99–100
[2023-10-14] MEDS: PIPERACILLIN-TAZOB 3.375GM 100 ML IV SCH (17:35)
[2023-10-15] VITALS (8 sets, daily range): BP systolic 129–152; BP diastolic 60–98; PULSE 102–112; RESP 16–18; TEMP 97.5–98.6; O2SAT 98–100
[2023-10-15 14:42] LABS: Basophils # (auto) 0 10 ^3/uL (0-0.2); Basophils % (auto) 0.2 % (0.0-2.0); Eosinophils # (auto) 0 10 ^3/uL (0-0.8); Eosinophils % (auto) 0.7 % (0.0-7.0); Hematocrit 27.7 % (41.0-53.0); Hemoglobin 8.8 g/dL (13.5-17.5); Lymphocytes # (auto) 1.2 10 ^3/uL (0.4-5.4); Lymphocytes % (auto) 25.8 % (10.0-50.0); Mean Corpuscular Hemoglobin 27.3 pg (28.0-32.0); Mean Corpuscular Hgb Conc. 31.8 g/dL (32.0-36.0); Mean Corpuscular Volume 85.6 fL (80.0-100.0); Monocytes # (auto) 0.4 10 ^3/uL (0-1.3); Monocytes % (auto) 7.6 % (0.0-12.0); Neutrophils % (auto) 65.7 % (37.0-80.0); Red Blood Cells 3.23 10^6/uL (4.5-5.90); Red Cell Distribution Width 17.9 % (11.8-14.3); White Blood Cell 4.6 10^3/uL (4.4-10.8)
[2023-10-15 14:53] LABS: Anion Gap 6 (5-15); Carbon Dioxide 29 mmol/L (20-30); Chloride 110 mmol/L (98-107); Potassium 3.7 mmol/L (3.5-5.1); Sodium 145 mmol/L (136-145)
[2023-10-15 14:54] LABS: Calcium 10.3 mg/dL (8.5-10.1)
[2023-10-15 14:59] LABS: BUN/Creatinine Ratio 15.5 (10.0-20.0); Blood Urea Nitrogen 11 mg/dL (9-23); Glucose 157 mg/dL (74-106)
[2023-10-15 22:20] LABS: INR 1.29 (0.9-1.15); Partial Thromboplastin Time 29.3 SEC (24.5-34.5); Prothrombin Time 13.4 sec (9.3-11.8)
[2023-10-16] VITALS (9 sets, daily range): BP systolic 139–151; BP diastolic 63–82; PULSE 100–123; RESP 14–19; TEMP 97.3–98.3; O2SAT 98–100
[2023-10-16 10:59] LABS: INR 1.28 (0.9-1.15); Partial Thromboplastin Time 26.9 SEC (24.5-34.5); Prothrombin Time 13.3 sec (9.3-11.8)
[2023-10-16] MEDS: VANCOMYCIN HCL 1000 MG VL ONE (12:13)
[2023-10-16] MEDS: ceFAZolin 2 GM/D5W50ml 50 ML IV ONE (12:18)
[2023-10-16] MEDS: BUPIVACAINE 0.25% INJ 50ML VIAL ONE (12:41)
[2023-10-16] MEDS ORDERED: MIDAZOLAM HCL 2MG/2ML 2ml VIAL (1mg/ml) ONE (12:52)
[2023-10-16] MEDS ORDERED: fentaNYL CITRATE 100 MCG/2 ML VL ONE (12:52)
[2023-10-16] MEDS ORDERED: PROPOFOL 10 MG/ML 20 ML IV ONE (13:07)
[2023-10-16] MEDS ORDERED: DexAMETHasone SOD PHOS 10MG/1ML VIAL INJ ONE (13:07)
[2023-10-16] MEDS ORDERED: MORPHINE SULFATE 4 MG/ML SYR/VIAL IV PRN (13:45)
[2023-10-16] MEDS ORDERED: MIDAZOLAM HCL 2MG/2ML 2ml VIAL (1mg/ml) IV PRN (13:45)
[2023-10-16] MEDS ORDERED: ePHEDrine SULFATE 50 MG/ML AMP IV PRN (13:45)
[2023-10-16] MEDS: LABETALOL HCL 5 MG/ML 4ML SYRINGE IV PRN (13:49)
[2023-10-16] MEDS: LABETALOL HCL 5 MG/ML 4ML SYRINGE IV ONE (13:50)
[2023-10-17] VITALS (8 sets, daily range): BP systolic 130–155; BP diastolic 66–79; PULSE 96–114; RESP 19–20; TEMP 97.1–99.1; O2SAT 94–100
[2023-10-18] VITALS (10 sets, daily range): BP systolic 140–175; BP diastolic 68–100; PULSE 94–119; RESP 18–20; TEMP 98.3–99.3; O2SAT 93–98
[2023-10-18] MEDS: hydrALAZINE HCL 20 MG/ML VL IV PRN (01:24)
[2023-10-18] MEDS: METOPROLOL TARTRATE 25 MG TAB PO ONE (10:27)
[2023-10-18 11:33] LABS: Basophils # (auto) 0 10 ^3/uL (0-0.2); Eosinophils # (auto) 0 10 ^3/uL (0-0.8); Eosinophils % (auto) 0.2 % (0.0-7.0); Monocytes # (auto) 0.6 10 ^3/uL (0-1.3); Nucleated Red Blood Cells % 0.2 %
[2023-10-18 11:35] LABS: Basophils % (auto) 0.3 % (0.0-2.0); Hematocrit 25.6 % (41.0-53.0); Lymphocytes # (auto) 1.8 10 ^3/uL (0.4-5.4); Lymphocytes % (auto) 29.6 % (10.0-50.0); Mean Corpuscular Hemoglobin 27.1 pg (28.0-32.0); Mean Corpuscular Hgb Conc. 31.4 g/dL (32.0-36.0); Mean Corpuscular Volume 86.3 fL (80.0-100.0); Neutrophils # (auto) 3.7 10 ^3/uL (1.6-8.6); Neutrophils % (auto) 59.9 % (37.0-80.0); Red Blood Cells 2.96 10^6/uL (4.5-5.90); Red Cell Distribution Width 17.4 % (11.8-14.3); White Blood Cell 6.1 10^3/uL (4.4-10.8)
[2023-10-18 11:48] LABS: INR 1.26 (0.9-1.15); Partial Thromboplastin Time 28.1 SEC (24.5-34.5); Prothrombin Time 13.1 sec (9.3-11.8)
[2023-10-18] MEDS: LIDOCAINE 1% (LOCAL ANESTH.) PF 5ml SDV ID ONE (17:00)
[2023-10-18] MEDS: ONDANSETRON HCL 4 MG/2 ML VIAL IV ONE (18:18)
[2023-10-18] MEDS: METOPROLOL TARTRATE 25 MG TAB PO SCH (22:06)
[2023-10-18] MEDS: SODIUM CHLOR 0.9% PF (SALINE LOCK) 10ML VIAL/SYR IV SCH (22:06)
[2023-10-19 01:00] VITALS: BP 163/75; PULSE 93; RESP 19; TEMP 97.8; O2SAT 96
[2023-10-19 05:00] VITALS: BP 160/80; PULSE 95; RESP 19; TEMP 97.5; O2SAT 97
[2023-10-19 08:00] VITALS: PULSE 108; PULSE 94; RESP 19
[2023-10-19 08:59] VITALS: BP 163/67; PULSE 93; RESP 18; TEMP 98.9; O2SAT 97
[2023-10-19 12:40] VITALS: BP 145/84; PULSE 104; RESP 18; TEMP 98; O2SAT 96
[2023-10-19 16:40] VITALS: BP 144/79; PULSE 100; RESP 18; TEMP 98.2; O2SAT 94
== END 2023-10-19 18:30 | DRG 500 ==
LOC: TELE-EAST 19:48 → TELE-CENTR 10-12 02:04
PROVIDERS: ADMIT Hospitalist; ATTEND Nurse Practitioner Family
PROC: 3E0V329 Introduction of Other Anti-infective into Bones, Percutaneous Approach (ICD-10-PCS; 2023-10-16)
PROC: 0JDL0ZZ Extraction of Right Upper Leg Subcutaneous Tissue and Fascia, Open Approach (ICD-10-PCS; principal; 2023-10-16 12:43)
PROC: 02HV33Z Insertion of Infusion Device into Superior Vena Cava, Percutaneous Approach (ICD-10-PCS; 2023-10-18)
PROC: B548ZZA Ultrasonography of Superior Vena Cava, Guidance (ICD-10-PCS; 2023-10-18)
DX: T84.51XA Infection and inflammatory reaction due to internal right hip prosthesis, initial encounter (principal); G93.41 Metabolic encephalopathy; I13.0 Hypertensive heart and chronic kidney disease with heart failure and stage 1 through stage 4 chronic kidney disease, or unspecified chronic kidney disease; T81.32XA Disruption of internal operation (surgical) wound, not elsewhere classified, initial encounter; N40.1 Benign prostatic hyperplasia with lower urinary tract symptoms; Z96.641 Presence of right artificial hip joint; G20.A1 Parkinson's disease without dyskinesia, without mention of fluctuations; I50.9 Heart failure, unspecified; R29.6 Repeated falls; Y83.8 Other surgical procedures as the cause of abnormal reaction of the patient, or of later complication, without mention of misadventure at the time of the procedure; N18.9 Chronic kidney disease, unspecified; E11.22 Type 2 diabetes mellitus with diabetic chronic kidney disease; F02.80 Dementia in other diseases classified elsewhere, unspecified severity, without behavioral disturbance, psychotic disturbance, mood disturbance, and anxiety; Z90.12 Acquired absence of left breast and nipple; Z79.2 Long term (current) use of antibiotics; Z79.01 Long term (current) use of anticoagulants; Z79.899 Other long term (current) drug therapy; Z87.891 Personal history of nicotine dependence; Z83.3 Family history of diabetes mellitus; Z82.49 Family history of ischemic heart disease and other diseases of the circulatory system; Z86.711 Personal history of pulmonary embolism; Z85.89 Personal history of malignant neoplasm of other organs and systems; Y92.89 Other specified places as the place of occurrence of the external cause; Y81.2 Prosthetic and other implants, materials and accessory general- and plastic-surgery devices associated with adverse incidents
CPT/HCPCS: 36415; 36569; 70551; 71045; 73501; 73700; 77002; 80048; 80202; 83036; 83605; 83880; 84484; 85025; 85610; 85652; 85730; 86141; 86803; 87040; 87077; 87081; 87186; 87205; 87340; 93005; 93306; 96365; 97110; 97163; 97530; 99291; C9113; G0378; J1100; J2001; J2250; J2543; J2704; J3490

== ENCOUNTER 2023-10-30 10:18 | Emergency (ER) | payer OTHER ==
[~2023-10-30] VITALS: Ht 182.9 cm; Wt 90.9 kg
[~2023-10-30 10:18] MED LIST changes: +APIX5TAB PO
[2023-10-30 10:39] VITALS: PULSE 89; RESP 19; O2SAT 95
[2023-10-30 10:58] LABS: Basophils # (auto) 0 10 ^3/uL (0-0.2); Basophils % (auto) 0.5 % (0.0-2.0); Eosinophils # (auto) 0 10 ^3/uL (0-0.8); Eosinophils % (auto) 0.9 % (0.0-7.0); Hematocrit 32.4 % (41.0-53.0); Hemoglobin 10.3 g/dL (13.5-17.5); Lymphocytes # (auto) 1.4 10 ^3/uL (0.4-5.4); Mean Corpuscular Hemoglobin 27.4 pg (28.0-32.0); Mean Corpuscular Hgb Conc. 31.8 g/dL (32.0-36.0); Mean Corpuscular Volume 86.1 fL (80.0-100.0); Monocytes # (auto) 0.4 10 ^3/uL (0-1.3); Monocytes % (auto) 7.5 % (0.0-12.0); Neutrophils # (auto) 3.3 10 ^3/uL (1.6-8.6); Neutrophils % (auto) 64.1 % (37.0-80.0); Nucleated Red Blood Cells % 0.2 %; Red Blood Cells 3.76 10^6/uL (4.5-5.90); White Blood Cell 5.2 10^3/uL (4.4-10.8)
[2023-10-30 11:14] LABS: Alanine Aminotransferase 46 U/L (7-40); Albumin 3.1 g/dL (3.2-4.8); Alkaline Phosphatase 79 U/L (46-116); Anion Gap 5 (5-15); Aspartate Aminotransferase 60 U/L (13-40); Bilirubin, Total 0.3 mg/dL (0.2-1.0); Calcium 9.3 mg/dL (8.5-10.1); Carbon Dioxide 28 mmol/L (20-30); Chloride 111 mmol/L (98-107); Glucose 124 mg/dL (74-106); Sodium 144 mmol/L (136-145); Total Protein 5.8 g/dL (5.7-8.2)
[2023-10-30 11:16] LABS: BUN/Creatinine Ratio 8.3 (10.0-20.0); Blood Urea Nitrogen < 5 mg/dL (9-23)
[2023-10-30] MEDS: POTASSIUM CHL 20 Meq TABLET PO ONE ×2 (11:28→14:43)
[2023-10-30] MEDS ORDERED: POTA1TAB4 PO (11:40)
[2023-10-30 19:30] VITALS: PULSE 87; RESP 20; O2SAT 94
[2023-10-30 22:00] VITALS: BP 162/89; PULSE 112; RESP 20; O2SAT 97
== END 2023-10-30 23:55 | disposition home or self-care (01) ==
LOC: ER 10:18 → EDBD 10:18 → ER 23:55
DX: E87.6 Hypokalemia (principal); I13.0 Hypertensive heart and chronic kidney disease with heart failure and stage 1 through stage 4 chronic kidney disease, or unspecified chronic kidney disease; E11.22 Type 2 diabetes mellitus with diabetic chronic kidney disease; N18.9 Chronic kidney disease, unspecified; I50.9 Heart failure, unspecified; Z79.899 Other long term (current) drug therapy
CPT/HCPCS: 36415; 80053; 85025; 93005